=== PATIENT | female | born 1965 | race Caucasian/White ===

== ENCOUNTER 2017-02-28 22:56 | Emergency (ER) | payer SELFPAY ==
[2017-03-01 01:38] VITALS: BP 121/83
== END 2017-03-01 01:38 | disposition home or self-care (01) ==
LOC: ED 22:56
DX: J20.9 Acute bronchitis, unspecified (principal)
CPT/HCPCS: J7512; J7620

== ENCOUNTER 2017-07-06 06:42 | Emergency (ER) | payer OTHER ==
[~2017-07-06] VITALS: Ht 175.3 cm; Wt 86.7 kg
[2017-07-06 06:51] VITALS: Ht 175.3 cm; Wt 86.7 kg
[2017-07-06 08:20] VITALS: BP 126/85
== END 2017-07-06 08:20 | disposition home or self-care (01) ==
LOC: ED 06:42
DX: S63.501A Unspecified sprain of right wrist, initial encounter (principal); W18.49XA Other slipping, tripping and stumbling without falling, initial encounter; Y93.89 Activity, other specified; Y92.89 Other specified places as the place of occurrence of the external cause; Y99.8 Other external cause status
CPT/HCPCS: Q0092

== ENCOUNTER 2017-09-22 23:03 | Emergency (ER) | payer OTHER ==
[~2017-09-22] VITALS: Ht 170.2 cm; Wt 87.5 kg
[2017-09-22 23:07] VITALS: Ht 170.2 cm; Wt 87.5 kg
[2017-09-23 01:17] VITALS: BP 154/54
== END 2017-09-23 01:17 | disposition home or self-care (01) ==
LOC: ED 23:03
DX: J20.9 Acute bronchitis, unspecified (principal)
CPT/HCPCS: J7620; Q0092

== ENCOUNTER 2018-02-20 15:14 | Emergency (ER) | payer OTHER ==
[~2018-02-20] VITALS: Ht 175.3 cm; Wt 86.2 kg
[2018-02-20 15:27] VITALS: BP 125/75
== END 2018-02-20 15:58 | disposition left against medical advice (07) ==
LOC: ED 15:14
DX: Z53.21 Procedure and treatment not carried out due to patient leaving prior to being seen by health care provider (principal)

== ENCOUNTER 2019-03-28 19:58 | Emergency (ER) | payer OTHER ==
[~2019-03-28] VITALS: Ht 177.8 cm; Wt 85.3 kg
[2019-03-28 20:27] VITALS: Ht 177.8 cm; Wt 85.3 kg
[2019-03-28 21:48] VITALS: BP 129/88
== END 2019-03-28 21:48 | disposition home or self-care (01) ==
LOC: ED 19:58
DX: H66.91 Otitis media, unspecified, right ear (principal); Z98.890 Other specified postprocedural states

== ENCOUNTER 2019-05-25 21:13 | Emergency (ER) | payer OTHER ==
[~2019-05-25] VITALS: Ht 172.7 cm; Wt 84.4 kg
[2019-05-25 21:17] VITALS: Ht 172.7 cm; Wt 84.4 kg
[2019-05-26 00:46] VITALS: BP 125/75
== END 2019-05-26 00:46 | disposition home or self-care (01) ==
LOC: ED 21:13
DX: J40 Bronchitis, not specified as acute or chronic (principal); F17.210 Nicotine dependence, cigarettes, uncomplicated; Z98.890 Other specified postprocedural states
CPT/HCPCS: 99406; J7512; J7613; J7644